=== PATIENT | male | born 1970 | race Caucasian/White ===

== ENCOUNTER 2025-07-05 06:03 | Emergency (ER) | payer OTHER ==
[2025-07-05] MEDS: Midazolam 5 MG/ML 10 ML MDV IV STA (06:08)
[2025-07-05] MEDS: Midazolam 1 MG/ML 2 ML SDV IVPUSH ONE ×2 (06:15→06:23)
[2025-07-05 06:34] LABS: PLATELET COUNT,PLT 247 10^3/uL (150-450); RED BLOOD CELL COUNT 5.02 10^6/uL (4.6-6.2); WHITE BLOOD CELL COUNT,WBC 11.0 10^3/uL (5.0-10.0)
[2025-07-05 06:35] LABS: APPEARANCE,URINE CLEAR (CLEAR); GLUCOSE,URINE 500 (NEGATIVE); OCCULT BLOOD,URINE TRACE-INTACT (NEGATIVE)
[2025-07-05 06:38] LABS: BASOPHILS PERCENT AUTO 0.3 % (0.0-1.0); EOSINOPHILS PERCENT AUTO 4.5 % (1.0-3.0); LYMPHOCYTES PERCENT AUTO 27.6 % (20.5-50.1); MONOCYTES PERCENT AUTO 8.9 % (2-8); NEUTROPHILS PERCENT AUTO 58.7 % (42.2-75.2)
[2025-07-05 06:39] LABS: AMPHETAMINES,URINE NEGATIVE (NEGATIVE); BARBITURATES,URINE NEGATIVE (NEGATIVE); MDMA (ECSTASY), URINE NEGATIVE (NEGATIVE); METHAMPHETAMINES,URINE NEGATIVE (NEGATIVE); OPIATES,URINE NEGATIVE (NEGATIVE); OXYCODONE,URINE POSITIVE (NEGATIVE); PHENCYCLIDINE,URINE NEGATIVE (NEGATIVE); TCA,URINE NEGATIVE (NEGATIVE)
[2025-07-05 06:48] LABS: EPITHELIAL CELLS,URINE FEW /HPF (NOT SEEN)
[2025-07-05 06:51] LABS: A/G RATIO 0.9; ALANINE AMINOTRANSFERASE,ALT 40 U/L (16-63); ASPARTATE AMNIOTRANSFERASE,AST 33 U/L (15-37); B-TYPE NATRIURETIC PEPTIDE,BNP 12 pg/ml (0-100); BILIRUBIN TOTAL 1.3 mg/dL (0.2-1.0); BLOOD UREA NITROGEN,BUN 8 mg/dL (7-18); CARBON DIOXIDE,CO2 26 mmol/L (21-32); CHLORIDE,CL 101 mmol/L (98-107); CREATINE KINASE,CK 112 U/L (39-308); CREATININE 1.06 mg/dL (0.70-1.30); ESTIMATED GFR 82 mL/min (>=60); ETHANOL BLOOD MEDICAL < 3 mg/dL (0); GLUCOSE RANDOM 278 mg/dL (70-99); POTASSIUM,K 3.5 mmol/L (3.5-5.1); PROTEIN TOTAL,TP 7.0 g/dL (6.4-8.2); SODIUM,NA 139 mmol/L (136-145)
[2025-07-05] MEDS: Magnesium Sulfate 2 GM/50 mL 2 GM in Premix Bag 1 BAG IV ONE (06:57)
[2025-07-05 07:00] LABS: LACTIC ACID 5.9 mmol/L (0.4-2.0)
[2025-07-05 07:07] LABS: O2 DELIVERY DEVICE NON REBR MASK
[2025-07-05 07:08] LABS: BASE EXCESS VENOUS -3.5 mmol/l ((-2)-(+3)); BICARBONATE,VENOUS 24 mmol/l (19-25); O2 SATURATION VENOUS 86.4 % (60-80); PCO2 VENOUS 53 mmHg (41-51); PH,VENOUS 7.27 (7.31-7.41); PO2 VENOUS 58 mmHg (35-42)
[2025-07-05 07:10] LABS: BAND PERCENT MAN 4 %; EOSINOPHILS PERCENT MAN 4 % (1-3); LYMPHOCYTES PERCENT MAN 28 % (20-50); MONOCYTES PERCENT MAN 8 % (2-8); SEG NEUTROPHILS PERCENT MAN 59 % (42-75)
[2025-07-05] MEDS: Dexamethasone 4 MG/ML SDV IVPUSH ONE (07:18)
[2025-07-05] MEDS: Midazolam 5 MG/ML 10 ML MDV ONE (07:20)
[2025-07-05] MEDS: Iopamidol 755 Mg/ML 100 ML Bottle IVPUSH ONE (07:30)
== END 2025-07-05 11:50 | disposition still patient (30) ==
LOC: EDSEX → EDBD → DL.ED 06:03
DX: J45.901 Unspecified asthma with (acute) exacerbation (principal); I46.9 Cardiac arrest, cause unspecified; G93.40 Encephalopathy, unspecified; Z88.8 Allergy status to other drugs, medicaments and biological substances
CPT/HCPCS: 36415; 51702; 70450; 71045; 71275; 80053; 80305; 80307; 81001; 82550; 82803; 82947; 83605; 83690; 83735; 83880; 84484; 85025; 93005; 93010; 94640; 96361; 96365; 96375; 99285; 99291; 99292; J1100; J2250; J3475; J7040; J7050; J7620; Q9967; A9270-GY